=== PATIENT | male | born 1945 | race Caucasian/White ===

== ENCOUNTER 2020-08-17 12:05 | Emergency (ER) | payer OTHER, BC ==
[~2020-08-17] VITALS: Ht 175.3 cm; Wt 83.9 kg
[2020-08-17] MEDS ORDERED: TAMS0.4C PO (12:21)
[2020-08-17] MEDS ORDERED: CIPRO500 MG PO (12:21)
[2020-08-17] MEDS ORDERED: UROXATRAL10 MG PO (12:22)
[2020-08-17] MEDS ORDERED: FINASTERIDE5 MG PO (12:22)
[2020-08-17] MEDS ORDERED: AMLODIPINE-OLM1 EAC3 PO (12:22)
== END 2020-08-17 15:54 | disposition home or self-care (01) ==
LOC: ER 12:05
DX: N45.1 Epididymitis (principal); N43.2 Other hydrocele; R30.0 Dysuria

== ENCOUNTER 2020-12-05 11:11 | Emergency (ER) | payer OTHER, BC ==
[~2020-12-05] VITALS: Ht 172.7 cm; Wt 88.9 kg
[~2020-12-05 11:11] MED LIST: AMLODIPINE-OLM1 EAC3 PO; CIPRO500 MG PO; FINASTERIDE5 MG PO; TAMS0.4C PO; UROXATRAL10 MG PO
== END 2020-12-05 14:21 | disposition home or self-care (01) ==
LOC: ER 11:11
DX: S40.021A Contusion of right upper arm, initial encounter (principal); M19.021 Primary osteoarthritis, right elbow; M25.521 Pain in right elbow; W01.198A Fall on same level from slipping, tripping and stumbling with subsequent striking against other object, initial encounter; Y93.89 Activity, other specified; Y92.038 Other place in apartment as the place of occurrence of the external cause; Y99.8 Other external cause status

== ENCOUNTER 2024-07-02 09:40 | Emergency (ER) | payer OTHER, BC ==
[~2024-07-02] VITALS: Ht 172.7 cm; Wt 81.6 kg
[~2024-07-02 09:40] MED LIST changes: +CHILDREN'S ASPI81 MG
[2024-07-02] MEDS ORDERED: AMLOPIDINE (10:28)
[2024-07-02] MEDS ORDERED: ENALAPRILAT DIHYDRATE 1.25 MG/ML VIAL IV ONE (15:30)
[2024-07-03] MEDS ORDERED: AMLODIPINE BESYLATE 5 MG TABLET PO SCH (09:00)
== END 2024-07-02 17:21 | disposition home or self-care (01) ==
LOC: ER 09:40
DX: I10 Essential (primary) hypertension (principal); Z88.0 Allergy status to penicillin
CPT/HCPCS: 96365; 99282; J3490